=== PATIENT | female | born 1955 | race Caucasian/White ===

== ENCOUNTER 2019-09-27 12:02 | Emergency (ER) | payer MEDICARE ==
[2019-09-27 12:09] VITALS: RESP 18
[2019-09-27 13:05] LABS: Basophils # (A) 0.1 k/uL (0-0.2); Basophils % (A) 1 %; Eosinophils # (A) 0.1 k/uL (0-0.7); Eosinophils % (A) 1 %; HCT 43.2 % (34.0-46.0); Lymphocytes # (A) 1.3 k/uL (1.0-4.8); Lymphocytes % (A) 14 %; MCHC 34.6 g/dL (31.0-37.0); MCV 83.7 fL (80.0-100.0); Mean Platelet Volume 6.9; Monocytes # (A) 0.5 k/uL (0-1.0); Monocytes % (A) 5 %; Neutrophils # (A) 7.5 k/uL (1.3-7.7); Neutrophils % (A) 79 %; Platelet Count 242 k/uL (150-450); RBC 5.16 m/uL (3.80-5.40); RDW 13.8 % (11.5-15.5); WBC 9.5 k/uL (3.8-10.6)
[2019-09-27 13:13] LABS: African American GFR (CKD) >90 (>60 ml/min/1.73 sqM); Anion Gap 8 mmol/L; Blood Urea Nitrogen 11 mg/dL (7-17); Calcium 9.5 mg/dL (8.4-10.2); Carbon Dioxide 28 mmol/L (22-30); Chloride 105 mmol/L (98-107); Glucose 102 mg/dL (74-99); Potassium 4.3 mmol/L (3.5-5.1); Sodium 141 mmol/L (137-145)
--- NOTE | 2019-09-27 13:33 | ED ---
ENT HPI - General Source: patient Mode of arrival: ambulatory Limitations: no limitations <Wendy Ayoub - Last Filed: 09/27/19 14:26> <Karin Desai - Last Filed: 09/29/19 00:49> - General Chief complaint: Dental/Oral Stated complaint: Swollen face Time Seen by Provider: 09/27/19 12:12 - History of Present Illness Initial comments: Patient is a 64-year-old female presenting to the emergency Department with complaints of a dental abscess that started 2 days ago. Patient states she went to her PCP, Dr. Raphael yesterday and was started on penicillin. Patient states she has been taking and every 8 hours as prescribed. Patient states today when she was in line at a store, another person told her that she needs to come to the ER because her face looks worse than just a dental abscess and that she needs to have it checked. Patient then became concerned and came into the ER. Patient states the swelling has increased significantly since yesterday and she feels like it is becoming numb in the left side of her face. Patient denies recent fever, chills, trouble breathing, chest pain, throat pain. Patient has no other complaints at this time. Patient has been taking Motrin for swelling. Upon arrival to ER, Patient's BP is elevated at 189/90, rest of vital signs are normal. Patient states Dr. Raphael did start her on a high blood pressure medication yesterday secondary to her elevation in blood pressure. He stated it was most likely secondary to this acute pain. (Wendy Ayoub) - Related Data Allergies Allergy/AdvReac Type Severity Reaction Status Date / Time cimetidine [From Tagamet] AdvReac Nausea & Verified 09/27/19 12:09 Vomiting & Diarrhea Review of Systems ROS Other: All systems not noted in ROS Statement are negative. <Wendy Ayoub - Last Filed: 09/27/19 14:26> ROS Other: All systems not noted in ROS Statement are negative. <Karin Desai - Last Filed: 09/29/19 00:49> ROS Statement: Those systems with pertinent positive or pertinent negative responses have been documented in the HPI. Past Medical History Past Medical History: Hypertension History of Any Multi-Drug Resistant Organisms: None Reported Past Surgical History: Tubal Ligation Past Psychological History: No Psychological Hx Reported Smoking Status: Never smoker Past Alcohol Use History: None Reported Past Drug Use History: None Reported <Wendy Ayoub - Last Filed: 09/27/19 14:26> General Exam Limitations: no limitations <Wendy Ayoub - Last Filed: 09/27/19 14:26> - General Exam Comments Initial Comments: GENERAL: Well-appearing, well-nourished and in no acute distress. HEAD: Atraumatic, normocephalic. EYES: Pupils equal round and reactive to light, extraocular movements intact, sclera anicteric, conjunctiva are normal. ENT: TMs normal, nares patent, oropharynx clear without exudates. Moist mucous membranes. Patient has significant swelling of the left lower jaw extending below her jawline into the left lateral neck. There is some induration and tenderness to palpation of the left cheek area. The area is erythematous and slightly warm to the touch. Patient has pain with palpation of tooth #18 in the lower left. There is no visible abscess to I&D. NECK: Normal range of motion, supple without lymphadenopathy or JVD. Patient has swelling extending below the left jawline on the left side of the neck. LUNGS: Breath sounds clear to auscultation bilaterally and equal. No wheezes rales or rhonchi. HEART: Regular rate and rhythm without murmurs, rubs or gallops. ABDOMEN: Soft, nontender, normoactive bowel sounds. NEUROLOGICAL: Cranial nerves II through XII grossly intact. Normal speech, normal gait. PSYCH: Normal mood, normal affect. SKIN: Warm, Dry, normal turgor, no rashes or lesions noted. (Wendy Ayoub) Course Vital Signs 09/27/19 09/27/19 12:03 14:29 Temperature 98.4 F 97.8 F Pulse Rate 87 85 Respiratory 18 18 Rate Blood Pressure 189/90 185/87 O2 Sat by Pulse 99 98 Oximetry Medical Decision Making - Lab Data Result diagrams: 09/27/19 12:53 09/27/19 12:53 <Wendy Ayoub - Last Filed: 09/27/19 14:26> - Lab Data Result diagrams: 09/27/19 12:53 09/27/19 12:53 <Karin Desai - Last Filed: 09/29/19 00:49> - Medical Decision Making Patient is a 64-year-old female presenting with a dental abscess on the left. P atient has significant swelling and mild overlying erythema. Lab work was reviewed and shows no acute abnormalities. CT of the neck reveals soft tissue swelling of the left side of the mandible with a tiny lucent center indicating a possible early abscess developing. Patient is stable for discharge at this time. Patient will continue with penicillin as prescribed by Dr. Raphael as well as Motrin for swelling and pain relief. Patient will also continue with a blood pressure medication as prescribed by Dr. Raphael for her elevated BP. Patient will follow-up with the dentist tomorrow. Patient is agreement with this plan of care. Return parameters were discussed with the patient she verbalized understanding. Case discussed with Dr. Desai. (Wendy Ayoub) I was available for consultation in the emergency department. The history and physical exam were done by the midlevel provider. I was consulted for this patients care. I reviewed the case with the midlevel provider and based on their presentation of the patient, I agree with the assessment, medical decision making and plan of care as documented. Chart was dictated using [employer] dictation software. Attempts were made to correct any dictation errors however some typographical errors may persist. (Karin Desai) - Lab Data Lab Results 09/27/19 09/27/19 Range/Units 12:53 12:53 WBC 9.5 (3.8-10.6) k/uL RBC 5.16 (3.80-5.40) m/uL Hgb 15.0 (11.4-16.0) gm/dL Hct 43.2 (34.0-46.0) % MCV 83.7 (80.0-100.0) fL MCH 29.0 (25.0-35.0) pg MCHC 34.6 (31.0-37.0) g/dL RDW 13.8 (11.5-15.5) % Plt Count 242 (150-450) k/uL Neutrophils % 79 % Lymphocytes % 14 % Monocytes % 5 % Eosinophils % 1 % Basophils % 1 % Neutrophils # 7.5 (1.3-7.7) k/uL Lymphocytes # 1.3 (1.0-4.8) k/uL Monocytes # 0.5 (0-1.0) k/uL Eosinophils # 0.1 (0-0.7) k/uL Basophils # 0.1 (0-0.2) k/uL Sodium 141 (137-145) mmol/L Potassium 4.3 (3.5-5.1) mmol/L Chloride 105 (98-107) mmol/L Carbon Dioxide 28 (22-30) mmol/L Anion Gap 8 mmol/L BUN 11 (7-17) mg/dL Creatinine 0.68 (0.52-1.04) mg/dL Est GFR (CKD-EPI)AfAm >90 (>60 ml/min/1.73 sqM) Est GFR (CKD-EPI)NonAf >90 (>60 ml/min/1.73 sqM) Glucose 102 H (74-99) mg/dL Calcium 9.5 (8.4-10.2) mg/dL Disposition Is patient prescribed a controlled substance at d/c from ED?: No <Wendy Ayoub - Last Filed: 09/27/19 14:26> <Karin Desai - Last Filed: 09/29/19 00:49> Clinical Impression: Dental abscess Disposition: HOME SELF-CARE Condition: Stable Instructions (If sedation given, give patient instructions): Dental Abscess (ED) Additional Instructions: Please return to the Emergency Department if symptoms worsen or any other concerns. Follow-up with dentist tomorrow. Continue taking penicillin as prescribed by Dr. Raphael. May take Motrin for pain and swelling relief. Referrals: Humza Raphael MD [Primary Care Provider] - 1-2 days
--- NOTE | 2019-09-27 14:04 | CT ---
EXAMINATION TYPE: CT soft tissue neck w con DATE OF EXAM: 09/27/2019 1:44 PM COMPARISON: HISTORY: Dental abscess CT DLP: 212.1 mGycm Automated exposure control for dose reduction was used. CONTRAST: CT scan of the neck is performed following with IV Contrast, patient injected with 100 ml mL of Isovu e 300. Axial images are obtained, coronal and sagittal reformatted images are reviewed. FINDINGS: Visualized portions of the lungs are clear. Visualized intracranial structures are unremarkable. The paranasal sinuses and mastoids are clear. There is a grade 1 antegrade listhesis of C4 on C5. Alignment is otherwise maintained. Atlantoaxial r elationships are normal. There is uncovertebral joint disease present at C5-6. No definite protrusion is seen. There is considerable streak artifact about the maxilla and mandible due to dental hardware. There is soft tissue swelling and edema involving the soft tissues adjacent to the left side of the mandible. This is tiny lucency in the center of the swelling which may represent a small abscess. The major salivary glands are normal. The parapharyngeal, oropharyngeal and laryngeal soft tissues are normal. The thyroid gland enhances homogeneously. There is no significant deep or superficial cervical adenopathy. IMPRESSION: 1. Soft tissue swelling adjacent to the left side of the mandible with a tiny lucent center measuring 6.1 mm. I could not exclude an early abscess developing. 2. Degenerative changes within the cervical spine.
[2019-09-27 14:31] VITALS: BP 185/87; PULSE 85; TEMP 97.8
== END 2019-09-27 14:29 | disposition home or self-care (01) ==
LOC: EC 12:02
DX: K04.7 Periapical abscess without sinus (principal); I10 Essential (primary) hypertension; Z88.8 Allergy status to other drugs, medicaments and biological substances; Z79.899 Other long term (current) drug therapy
CPT/HCPCS: 36415; 80048; 85025; 70491; 99284; Q9967

== ENCOUNTER → 2021-08-30 | Outpatient (CLI) | payer MEDICARE ==
[~2021-08-30] MED LIST: CASIRIVIMAB (REGN10933) (EUA) 600 MG, IMDEVIMAB (REGN10987) (EUA) 600 MG in SODIUM CHLO... IVPB NR; SODIUM CHLORIDE 0.9% 50 ML IVPB NR; SODIUM CHLORIDE 0.9% 500 ML 500 ML in EMPTY BAG 1 BAG IV PRN
[2021-08-30 07:58] VITALS: RESP 16
[2021-08-30 09:18] VITALS: BP 142/82; PULSE 69; TEMP 97.6
== END ==
LOC: PROCWHC3 07:30
PROVIDERS: ATTEND Internal Medicine
DX: U07.1 COVID-19 (principal); Z88.8 Allergy status to other drugs, medicaments and biological substances
CPT/HCPCS: 96361; 96365; M0243

== ENCOUNTER → 2022-09-10 | Outpatient (CLI) | payer MEDICARE ==
--- NOTE | 2022-09-11 09:41 | MM ---
Reason for Exam: Screening (asymptomatic). Patient History: Menarche at age 11. First Full-Term at age 23. Postmenopausal. Maternal aunt had breast cancer. Risk Values: Joanie 5 year model risk: 1.9%. NCI Lifetime model risk: 5.9%. Tissue Density: The breast tissue is heterogeneously dense. This may lower the sensitivity of mammography. Findings: Analyzed By CAD. There is no suspicious group of microcalcifications. There is 3 small nodules demonstrated within the upper outer left breast middle depth. Overall Assessment: Incomplete: need additional imaging evaluation, BI-RAD 0 Management: Diagnostic Breast Ultrasound of the left breast. A clinical breast exam by your physician is recommended on an annual basis and results should be correlated with mammographic findings. [facility] will attempt to contact patient to return for supplemental views and ultrasound if indicated. Electronically signed and approved by: Faustino Garcia D.O.
== END | disposition home or self-care (01) ==
LOC: RADMAMWWP 10:07
PROVIDERS: ATTEND Internal Medicine
DX: Z12.31 Encounter for screening mammogram for malignant neoplasm of breast (principal); Z78.0 Asymptomatic menopausal state; Z80.3 Family history of malignant neoplasm of breast
CPT/HCPCS: 77063; 77067

== ENCOUNTER → 2022-09-13 | Outpatient (CLI) | payer MEDICARE ==
--- NOTE | 2022-09-13 10:15 | USB ---
Reason for Exam: Additional evaluation requested from abnormal screening. Patient History: Menarche at age 11. First Full-Term at age 23. Postmenopausal. Maternal aunt had breast cancer. Risk Values: Joanie 5 year model risk: 1.9%. NCI Lifetime model risk: 5.9%. Technique: Method: Targeted. Prior Study Comparison: 09/10/2022 Bilateral MG 3D screening mammo w/cad, [facility]. Findings: The upper outer quadrant of the left breast, the axilla of the left breast and the retroareolar of the left breast were scanned. Targeted ultrasound left breast upper outer quadrant of the left 3:00 including the subareolar region and axilla. At 12:00, 7 cm from the nipple, there is a reniform shaped area measuring 5 x 4 x 3 mm, probable mammographic correlate. At the 1:00 position, 7 cm from the nipple, there is a 5 x 4 x 2 mm oval circumscribed hypoechoic area, too small to characterize further, probably a tiny cyst, possible mammographic correlate. Both findings are likely benign. The mammogram can be reassessed in 6 months. No other solid or cystic lesion. Overall Assessment: Probably benign, BI-RAD 3 Management: Diagnostic Mammogram of the left breast in 6 months. To reassess the upper outer quadrant focal asymmetry, probably tiny intramammary lymph node and benign cyst seen on ultrasound. Patient should continue monthly self breast exams. These results should not preclude additional follow-up of suspicious palpable abnormalities. Results were given to the patient verbally at the time of exam. Electronically signed and approved by: Aparna Cooney M.D. Radiologist
== END | disposition home or self-care (01) ==
LOC: RADUSWWP 09:35
PROVIDERS: ATTEND Internal Medicine
DX: R92.8 Other abnormal and inconclusive findings on diagnostic imaging of breast (principal); Z78.0 Asymptomatic menopausal state; Z80.3 Family history of malignant neoplasm of breast

== ENCOUNTER → 2023-10-02 | Outpatient (CLI) | payer MEDICARE ==
--- NOTE | 2023-10-02 09:33 | MM ---
Reason for Exam: Follow-up at short interval from prior study. Last mammogram was performed 1 year(s) and 1 month(s) ago. Patient History: Menarche at age 11. First Full-Term at age 23. Postmenopausal. Maternal aunt had breast cancer. Risk Values: Joanie 5 year model risk: 1.9%. NCI Lifetime model risk: 5.6%. Prior Study Comparison: 09/10/2022 Bilateral MG 3D screening mammo w/cad, [facility]. 09/13/2022 Left US breast workup limited , [facility]. Tissue Density: The breast tissue is heterogeneously dense. This may lower the sensitivity of mammography. Findings: Analyzed By CAD. Pattern appears stable. Focal asymmetries in the upper outer aspect left breast, stable from comparison. Benign vascular calcifications present. No significant interval change is evident. No suspicious groups of microcalcifications, spiculated or lobular masses, architectural distortion or other secondary signs of malignancy are mammographically apparent. Overall Assessment: Benign, BI-RAD 2 Management: Screening Mammogram of both breasts in 1 year. A negative mammogram report should not preclude additional follow up of suspicious palpable abnormalities. Patient should continue monthly self breast exam. A clinical breast exam by your physician is recommended on an annual basis and results should be correlated with mammographic findings. Electronically signed and approved by: Sudhakar Jean D.O. Radiologis
== END | disposition home or self-care (01) ==
LOC: RADMAMWWP 08:48
PROVIDERS: ATTEND Internal Medicine Geriatric Medicine
DX: R92.332 Mammographic heterogeneous density, left breast (principal); Z78.0 Asymptomatic menopausal state; Z80.3 Family history of malignant neoplasm of breast
CPT/HCPCS: 77066; G0279; 77062

== ENCOUNTER 2024-05-10 01:24 | Emergency (ER) | payer MEDICARE ==
[2024-05-10 01:52] VITALS: RESP 18; TEMP 98
--- NOTE | 2024-05-10 02:06 | ED ---
Extremity Problem HPI - General Chief complaint: Extremity Problem,Nontraumatic Stated complaint: elevated BP fall Time Seen by Provider: 05/10/24 01:38 Source: family, RN notes reviewed Mode of arrival: wheelchair Limitations: no limitations - History of Present Illness Initial comments: 69-year-old female presenting to the ED with a chief complaint of left ankle injury. Patient states that she was in the backyard going down some steps. States that she got distracted by the kids playing in the backyard and missed a step causing her to twist her left ankle. Since then has had pain of the left ankle prompting presentation to the ED for further evaluation. No other injuries at this time. Denies head injury. Denies chest pain, shortness of neymar ath, headache, dizziness. no other complaints. - Related Data Home Medications Medication Instructions Recorded Confirmed Ascorbic Acid [Vitamin C] 1,000 mg PO DAILY 08/30/21 08/30/21 Aspirin 81 mg PO DAILY 08/30/21 08/30/21 Cholecalciferol [Vitamin D3 (25 25 mcg PO DAILY 08/30/21 08/30/21 Mcg = 1000 Iu)] Metoprolol Tartrate 25 mg PO DAILY 08/30/21 08/30/21 Multivitamins, Thera [Multivitamin 1 tab PO DAILY 08/30/21 08/30/21 (formulary)] Zinc 50 mg PO DAILY 08/30/21 08/30/21 Allergies Allergy/AdvReac Type Severity Reaction Status Date / Time cimetidine [From Tagamet] AdvReac Nausea & Verified 05/10/24 01:33 Vomiting & Diarrhea Review of Systems ROS Statement: Those systems with pertinent positive or pertinent negative responses have been documented in the HPI. ROS Other: All systems not noted in ROS Statement are negative. Past Medical History Past Medical History: Hypertension History of Any Multi-Drug Resistant Organisms: None Reported Past Surgical History: Tubal Ligation Past Psychological History: No Psychological Hx Reported Smoking Status: Former smoker Past Alcohol Use History: None Reported Past Drug Use History: None Reported General Exam Limitations: no limitations General appearance: alert, in no apparent distress Eye exam: Present: normal appearance Neck exam: Present: normal inspection Respiratory exam: Present: normal lung sounds bilaterally Cardiovascular Exam: Present: regular rate GI/Abdominal exam: Present: soft, normal bowel sounds. Absent: distended, tenderness, guarding, rebound, rigid Extremities exam: Present: other (No obvious deformity. No pitting edema. DP/PT pulses intact.) Back exam: Present: normal inspection, other (No midline spinal tenderness to palpation.) Neurological exam: Present: alert, oriented X3 Skin exam: Present: warm, dry Course Vital Signs 05/10/24 05/10/24 01:31 03:06 Temperature 98 F Pulse Rate 84 85 Respiratory 18 18 Rate Blood Pressure 190/77 182/81 O2 Sat by Pulse 95 94 L Oximetry Medical Decision Making - Medical Decision Making Was pt. sent in by a medical professional or institution (, PA, INSTRUCTIONAL MATERIAL DIRECTOR, urgent care, hospital, or group home...) When possible be specific @ -No Did you speak to anyone other than the patient for history (EMS, parent, family, police, friend...)? What history was obtained from this source @ -No Did you review nursing and triage notes (agree or disagree)? Why? @ -I reviewed and agree with nursing and triage notes Were old charts reviewed (outside hosp., previous admission, EMS record, old EKG, old radiological studies, urgent care reports/EKG's, group home records)? Report findings @ -No old charts were reviewed Differential Diagnosis (chest pain, altered mental status, abdominal pain women, abdominal pain men, vaginal bleeding, weakness, fever, dyspnea, syncope, headache, dizziness, GI bleed, back pain, seizure, CVA, palpatations, mental health, musculoskeletal)? @ -Differential Musculoskeletal Muscular strain, contusion, ligament sprain, fracture, arthritis, septic arthr itis, bursitis, cellulitis, muscle spasm, nerve compression, DVT, arterial occlusion, herpes zoster, electrolyte abnormality, tumor.... This is not meant to be in all inclusive list EKG interpreted by me (3pts min.). @ -None X-rays interpreted by me (1pt min.). @ -X-ray of the left ankle interpreted me which revealed no evidence of acute finding. CT interpreted by me (1pt min.). @ -None done U/S interpreted by me (1pt. min.). @ -None done What testing was considered but not performed or refused? (CT, X-rays, U/S, labs)? Why? @ -None What meds were considered but not given or refused? Why? @ -None Did you discuss the management of the patient with other professionals (professionals i.e. Dr., PA, INSTRUCTIONAL MATERIAL DIRECTOR, lab, RT, psych nurse, social welfare clerk, vaccine manager, teacher, emergency response officer, correctional casework specialist)? Give summary @ -No Was smoking cessation discussed for >3mins.? @ -No Was critical care preformed (if so, how long)? @ -No Were there social determinants of health that impacted care today? How? (Homelessness, low income, unemployed, alcoholism, drug addiction, transportation, low edu. Level, literacy, decrease access to med. care, [place] [facility], rehab)? @ -No Was there de-escalation of care discussed even if they declined (Discuss DNR or withdrawal of care, Hospice)? DNR status @ -No What co-morbidities impacted this encounter? (DM, HTN, Smoking, COPD, CAD, Can cer, CVA, ARF, Chemo, Hep., AIDS, mental health diagnosis, sleep apnea, morbid obesity)? @ -None Was patient admitted / discharged? Hospital course, mention meds given and route, prescriptions, significant lab abnormalities, going to OR and other pertinent info. @ -Discharge 69-year-old female presenting to the ED with complaints of left ankle pain after missing a step and twisting it. No other injuries at this time. X-ray revealed which revealed no evidence of acute finding. Ankle wrapped in Arvind bandage. Patient discharged home in stable condition. Advise close follow-up with her PCP. Discussed return precautions with patient who verbalized agreement. Undiagnosed new problem with uncertain prognosis? @ -No Drug Therapy requiring intensive monitoring for toxicity (Heparin, Nitro, Insulin, Cardizem)? @ -No Were any procedures done? @ -No Diagnosis/symptom? @ -Left ankle injury Acute, or Chronic, or Acute on Chronic? @ -Acute Uncomplicated (without systemic symptoms) or Complicated (systemic symptoms)? @ -Uncomplicated Side effects of treatment? @ -No Exacerbation, Progression, or Severe Exacerbation? @ -No Poses a threat to life or bodily function? How? (Chest pain, USA, NV, pneumonia, PE, COPD, DKA, ARF, appy, cholecystitis, CVA, Diverticulitis, Homicidal, Suicid al, threat to staff... and all critical care pts) @ -No Disposition Clinical Impression: Left ankle sprain Disposition: HOME SELF-CARE Condition: Good Instructions (If sedation given, give patient instructions): Ankle Sprain (ED) Additional Instructions: Please return to the Emergency Department if symptoms worsen or any other concerns. Please use [id number] medications as needed for pain. Follow- up with your primary care provider. Is patient prescribed a controlled substance at d/c from ED?: No Referrals: Elmer White MD [Primary Care Provider] - 1-2 days Time of Disposition: 03:25
[2024-05-10] MEDS: ACETAMINOPHEN TAB 500 MG TAB PO STA (02:10)
[2024-05-10] MEDS: KETOROLAC 15 MG/ML 1 ML VIAL IM STA (02:11)
--- NOTE | 2024-05-10 03:01 | XR ---
EXAM: XR Left Ankle Complete, 3 or More Views CLINICAL HISTORY: ITS.REASON XR Reason: r/o fx dislocation or other acute finding TECHNIQUE: Frontal, lateral and oblique views of the left ankle. COMPARISON: No relevant prior studies available. FINDINGS: Bones/joints: Osseous demineralization. Heel spur measures 5 mm. No fracture or subluxation. Soft tissues: Unremarkable. IMPRESSION: No fracture or subluxation.
[2024-05-10 04:04] VITALS: BP 177/88; PULSE 73
== END 2024-05-10 04:04 | disposition home or self-care (01) ==
LOC: EC 01:24
DX: S93.402A Sprain of unspecified ligament of left ankle, initial encounter (principal); X50.1XXA Overexertion from prolonged static or awkward postures, initial encounter; Z87.891 Personal history of nicotine dependence; Z88.8 Allergy status to other drugs, medicaments and biological substances; Y92.096 Garden or yard of other non-institutional residence as the place of occurrence of the external cause
CPT/HCPCS: 73610; 99284; 96372; J1885

== ENCOUNTER → 2024-12-07 | Outpatient (CLI) | payer MEDICARE ==
--- NOTE | 2024-12-07 16:38 | MM ---
Reason for Exam: Screening (asymptomatic). Last mammogram was performed 1 year(s) and 2 month(s) ago. Patient History: Menarche at age 11. First Full-Term at age 23. Postmenopausal. Maternal aunt had breast cancer. Risk Values: Joanie 5 year model risk: 1.9%. NCI Lifetime model risk: 5.4%. Prior Study Comparison: 09/10/2022 Bilateral MG 3D screening mammo w/cad, [facility]. 10/02/2023 Bilateral MG 3D diag mammo w/cad [facility], [facility]. Tissue Density: The breasts are heterogeneously dense, which may obscure small masses. Findings: Analyzed By CAD. Unchanged lateral asymmetric density left cc view. There is no suspicious group of microcalcifications or new suspicious mass in either breast. Overall Assessment: Benign, BI-RAD 2 Management: Screening Mammogram of both breasts in 1 year. Patient should continue monthly self-breast exams. A clinical breast exam by your physician is recommended on an annual basis. This exam should not preclude additional follow-up of suspicious palpable abnormalities. Note on Joanie scores and lifetime risk: 1. A Joanie score greater than 3% is considered moderate risk. If this is the case, consider specialist referral to assess eligibility for a risk reducing agent. 2. If overall lifetime risk for the development of breast cancer is 20% or higher, the patient may qualify for future screening with alternating mammogram and breast MRI. [facility], , 12/07/2024 4:36 PM. Electronically signed and approved by: Aparna Cooney M.D. Radiologist
== END | disposition home or self-care (01) ==
LOC: RADMAMWWP 14:14
PROVIDERS: ATTEND Internal Medicine Geriatric Medicine
DX: Z12.31 Encounter for screening mammogram for malignant neoplasm of breast (principal); R92.333 Mammographic heterogeneous density, bilateral breasts; Z78.0 Asymptomatic menopausal state; Z80.3 Family history of malignant neoplasm of breast
CPT/HCPCS: 77063; 77067